=== PATIENT | female | born 1995 | race African-American/Black ===

== ENCOUNTER 2017-10-23 09:01 | Emergency (ER) | payer OTHER, MEDICAID ==
[~2017-10-23] VITALS: Ht 167.6 cm; Wt 79.4 kg
[~2017-10-23 09:01] MED LIST: FLAGYL500 MG PO; HYDROCODONE-AP1 EAC6 PO; IBUPROFEN 800800 M1 PO; KEFLEX500 MG PO; MACROBID 100 M100 M2 PO; ULTRAM 50MG TAB50 MG PO; VENTOLIN HFA INH8 GM; ZOFRAN ODT4 MG PO
[2017-10-23 09:10] VITALS: BP 138/76
[2017-10-23] MEDS ORDERED: ZPAK PO (09:17)
[2017-10-23] MEDS ORDERED: PREDNISONE 20 M20 M1 PO (09:17)
[2017-10-23] MEDS ORDERED: VENTOLIN HFA 1818 GM INH (09:17)
== END 2017-10-23 09:23 | disposition home or self-care (01) ==
LOC: M.ERS 09:01
DX: J40 Bronchitis, not specified as acute or chronic (principal)

== ENCOUNTER 2018-09-07 09:15 | Emergency (ER) | payer OTHER, MEDICAID ==
[~2018-09-07] VITALS: Ht 167.6 cm; Wt 93.7 kg
[~2018-09-07 09:15] MED LIST changes: +PREDNISONE 20 M20 M1 PO; +VENTOLIN HFA 1818 GM INH; +ZPAK PO
[2018-09-07 09:54] LABS: CALCIUM 8.7 mg/dL (8.5-10.1); CREATININE 0.8 mg/dL (0.6-1.3); POTASSIUM 3.4 mmol/L (3.5-5.1)
[2018-09-07 09:56] LABS: HEMOGLOBIN 9.6 gm/dL (12.0-15.0); WBC 6.1 thou/uL (4.0-11.0)
[2018-09-07 09:58] LABS: ALBUMIN 3.6 g/dL (3.4-5.0); HEMATOCRIT 32.6 % (37.0-47.0); MCHC 29.6 g/dL (28.0-37.0); MCV 64.4 fL (80.0-100.0); MPV 8.9 fl. (7.2-11.1); NUCLEATED RBCS 0 /100WBC; PLATELET COUNT* 394 thou/uL (150-400); RBC 5.06 mil/uL (4.20-5.00); RDW-CV 19.5 % (10.5-14.5); TOTAL BILIRUBIN 0.6 mg/dL (<0.1-1.0); TOTAL PROTEIN 7.3 g/dL (6.4-8.2)
[2018-09-07 10:12] LABS: URINE CLARITY CLOUDY; URINE COLOR YELLOW; URINE PROTEIN NEGATIVE (Negative); URINE SPECIFIC GRAVITY 1.025 (1.005-1.030)
[2018-09-07 10:13] LABS: URINE BILIRUBIN NEGATIVE (Negative); URINE BLOOD NEGATIVE (Negative); URINE GLUCOSE-RANDOM NEGATIVE (Negative); URINE KETONES NEGATIVE (Negative); URINE LEUKOCYTES-REFLEX 2+ (Negative); URINE NITRITE-REFLEX NEGATIVE (Negative); URINE UROBILINOGEN 0.2 E.U./dl (0.2-1.0)
[2018-09-07 10:14] LABS: SQUAMOUS >10 Many /LPF (0-3); URINE WBC-REFLEX >25 Many /HPF (0-5)
[2018-09-07 10:15] LABS: URINE RBC 3-10 Few /HPF (0-2)
[2018-09-07 10:16] LABS: BACTERIA-REFLEX >30 Many /HPF (None Seen); MUCUS >6 Heavy strn/LPF (None Seen)
[2018-09-07 10:17] LABS: CASTS None Seen /LPF (None Seen); CRYSTALS None Seen /LPF (None Seen)
[2018-09-07 10:45] LABS: ABSOLUTE BASOPHILS 0.1 thou/uL (0.0-0.2); ABSOLUTE EOSINOPHILS 0.1 thou/uL (0.0-0.7); ABSOLUTE MONOCYTES 0.7 thou/uL (0.0-1.2); ABSOLUTE NEUTROPHILS 3.3 thou/uL (1.6-8.1); ATYPICAL LYMPHS 4 %; PLATELET ESTIMATE ADEQUATE
[2018-09-07 10:46] LABS: HYPOCHROMASIA 2+; MICROCYTES 2+; TEARDROPS Occasional
[2018-09-07 10:47] LABS: ANISOCYTOSIS 1+
[2018-09-07 13:00] VITALS: BP 149/66
== END 2018-09-07 13:00 | disposition short-term general hospital (02) ==
LOC: M.ERS 09:15
PROVIDERS: Family Medicine
DX: N83.202 Unspecified ovarian cyst, left side (principal); R11.2 Nausea with vomiting, unspecified; J45.909 Unspecified asthma, uncomplicated

== ENCOUNTER 2020-07-04 07:25 | Emergency (ER) | payer OTHER ==
[~2020-07-04] VITALS: Ht 167.6 cm; Wt 93.0 kg
[2020-07-04] MEDS ORDERED: NUVARING VAGIN1 EACH VAG (07:38)
[2020-07-04 08:44] VITALS: BP 122/79
== END 2020-07-04 08:45 | disposition home or self-care (01) ==
LOC: M.ERS 07:25
DX: J06.9 Acute upper respiratory infection, unspecified (principal); J45.909 Unspecified asthma, uncomplicated; F17.210 Nicotine dependence, cigarettes, uncomplicated; Z20.828 Contact with and (suspected) exposure to other viral communicable diseases

== ENCOUNTER 2021-03-25 09:44 | Emergency (ER) | payer OTHER ==
[~2021-03-25] VITALS: Ht 167.6 cm; Wt 68.0 kg
[~2021-03-25 09:44] MED LIST changes: +NUVARING VAGIN1 EACH VAG
[2021-03-25 10:29] LABS: HEMOGLOBIN 8.1 gm/dL (12.0-15.0); MPV 8.3 fl. (7.2-11.1); NUCLEATED RBCS 0 /100WBC
[2021-03-25 10:31] LABS: CALCIUM 9.1 mg/dL (8.5-10.1); CREATININE 0.8 mg/dL (0.6-1.3); HEMATOCRIT 27.4 % (37.0-47.0); MCH 16.3 pg (26.0-34.0); MCHC 29.6 g/dL (28.0-37.0); MCV 55.3 fL (80.0-100.0); PLATELET COUNT* 424 thou/uL (150-400); POTASSIUM 3.7 mmol/L (3.5-5.1); RBC 4.97 mil/uL (4.20-5.00); RDW-CV 22.4 % (10.5-14.5); WBC 7.2 thou/uL (4.0-11.0)
[2021-03-25 10:35] LABS: ALBUMIN 3.9 g/dL (3.4-5.0); TOTAL BILIRUBIN 0.6 mg/dL (<0.1-1.0); TOTAL PROTEIN 8.1 g/dL (6.4-8.2)
[2021-03-25 11:24] LABS: ABSOLUTE LYMPHOCYTES 0.7 thou/uL (0.8-5.3); ABSOLUTE MONOCYTES 0.6 thou/uL (0.0-1.2); ABSOLUTE NEUTROPHILS 5.9 thou/uL (1.6-8.1); PLATELET ESTIMATE ADEQUATE
[2021-03-25 12:03] LABS: URINE BILIRUBIN NEGATIVE (Negative); URINE BLOOD 3+ (Negative); URINE CLARITY CLEAR; URINE COLOR YELLOW; URINE GLUCOSE-RANDOM NEGATIVE (Negative); URINE KETONES 1+ (Negative); URINE LEUKOCYTES-REFLEX TRACE (Negative); URINE NITRITE-REFLEX NEGATIVE (Negative); URINE PROTEIN NEGATIVE (Negative); URINE UROBILINOGEN 0.2 E.U./dl (0.2-1.0)
[2021-03-25 12:13] LABS: BACTERIA-REFLEX 1-9 Few /HPF (None Seen); CASTS None Seen /LPF (None Seen); CRYSTALS None Seen /LPF (None Seen); MUCUS None Seen strn/LPF (None Seen); SQUAMOUS 4-10 Moderate /LPF (0-3); URINE RBC >20 Many /HPF (0-2); URINE WBC-REFLEX 0-5 Rare /HPF (0-5)
[2021-03-25] MEDS ORDERED: PHENERGAN 25 MG25 M1 PO (14:48)
[2021-03-25] MEDS ORDERED: PROMS25 WY RECTAL (14:48)
[2021-03-25] MEDS ORDERED: BENTYL 10 MG CA10 M1 PO (14:48)
[2021-03-25 15:06] VITALS: BP 129/71
== END 2021-03-25 15:06 | disposition home or self-care (01) ==
LOC: M.ERS 09:44
PROVIDERS: Nurse Practitioner Family
DX: K52.9 Noninfective gastroenteritis and colitis, unspecified (principal); D64.9 Anemia, unspecified; D25.9 Leiomyoma of uterus, unspecified; R73.9 Hyperglycemia, unspecified; J45.909 Unspecified asthma, uncomplicated

== ENCOUNTER 2021-03-27 19:10 | Emergency (ER) | payer OTHER ==
[~2021-03-27] VITALS: Ht 167.6 cm; Wt 77.1 kg
[~2021-03-27 19:10] MED LIST changes: +BENTYL 10 MG CA10 M1 PO; +PHENERGAN 25 MG25 M1 PO; +PROMS25 WY RECTAL
[2021-03-27 19:44] LABS: HEMOGLOBIN 8.4 gm/dL (12.0-15.0); MCV 54.8 fL (80.0-100.0); NUCLEATED RBCS 0 /100WBC; PLATELET COUNT* 498 thou/uL (150-400); URINE BLOOD 3+ (Negative); URINE CLARITY CLOUDY; URINE COLOR RED; URINE GLUCOSE-RANDOM TRACE (Negative); URINE KETONES TRACE (Negative); URINE LEUKOCYTES-REFLEX TRACE (Negative); URINE NITRITE-REFLEX NEGATIVE (Negative); URINE PROTEIN 2+ (Negative)
[2021-03-27 19:46] LABS: HEMATOCRIT 28.7 % (37.0-47.0); MCH 16.1 pg (26.0-34.0); MCHC 29.4 g/dL (28.0-37.0); MPV 8.2 fl. (7.2-11.1); RBC 5.24 mil/uL (4.20-5.00); RDW-CV 22.1 % (10.5-14.5); WBC 6.2 thou/uL (4.0-11.0)
[2021-03-27 19:50] LABS: ICTOTEST (BILI CONFIRMATORY) Negative (Negative); URINE BILIRUBIN 1+ (Negative)
[2021-03-27 19:52] LABS: ALBUMIN 4.2 g/dL (3.4-5.0); CREATININE 0.9 mg/dL (0.6-1.3); POTASSIUM 2.9 mmol/L (3.5-5.1); TOTAL BILIRUBIN 1.3 mg/dL (<0.1-1.0); TOTAL PROTEIN 8.7 g/dL (6.4-8.2)
[2021-03-27 19:56] LABS: MUCUS 0-3 Light strn/LPF (None Seen); URINE RBC >20 Many /HPF (0-2)
[2021-03-27 19:57] LABS: SQUAMOUS 4-10 Moderate /LPF (0-3); URINE WBC-REFLEX 0-5 Rare /HPF (0-5)
[2021-03-27 19:58] LABS: BACTERIA-REFLEX None Seen /HPF (None Seen); CASTS None Seen /LPF (None Seen); CRYSTALS None Seen /LPF (None Seen)
[2021-03-27 20:16] LABS: ABSOLUTE BASOPHILS 0.1 thou/uL (0.0-0.2); ABSOLUTE EOSINOPHILS 0.1 thou/uL (0.0-0.7); ABSOLUTE LYMPHOCYTES 1.2 thou/uL (0.8-5.3); ABSOLUTE MONOCYTES 0.4 thou/uL (0.0-1.2); ABSOLUTE NEUTROPHILS 4.5 thou/uL (1.6-8.1); HYPOCHROMASIA 2+; MACROCYTES 1+; PLATELET ESTIMATE INCREASED
[2021-03-27 20:17] LABS: ANISOCYTOSIS 1+; LARGE PLATELETS FEW; MICROCYTES Occasional
[2021-03-27 20:18] LABS: POLYCHROMASIA Occasional
[2021-03-27 20:35] LABS: AMP/METHAMP Negative (Negative); BARBITURATES Negative (Negative); BENZODIAZEPINES Negative (Negative); COCAINE Negative (Negative); METHADONE Negative (Negative); OPIATES Negative (Negative); PCP Negative (Negative); THC POSITIVE (Negative)
[2021-03-27] MEDS ORDERED: PROMS25 WY RECTAL (21:22)
[2021-03-27] MEDS ORDERED: PHENERGAN 25 MG25 M1 PO (21:22)
[2021-03-27 22:15] VITALS: BP 141/93
--- NOTE | 2021-03-28 11:51 | EKG ---
[place] [address] ELECTROCARDIOGRAM REPORT Name: JERODJAIMIE Cristofer Room: [facility]#: [id number] Admission: 03/27/21 Attend Phys: Discharge: 03/27/21 Date of : 89 Date of Service: 03/27/211944 Report #: [id number] THIS REPORT FOR: //name// [facility] ED Test Date: 2021-03-27 Test Time: 19:45:02 Pat Name: JAIMIE NEWSOME Department: Room: Gender: [employer]: [place] : 1995 Requested By: Tati Maldonado Order Number: [id number] MD: Jeronimo Lim Measurements Intervals [place] Rate: 52 P: 10 [place]: 122 QRS: 18 QRSD: 87 T: 43 QT: 405 QTc: 377 Interpretive Statements Sinus rhythm No previous ECG available for comparison Electronically Signed On 03-28-2021 11:51:34 CDT by Jeronimo Lim [email or web address] <ELECTRONICALLY SIGNED> By: Jeronimo Lim MD, [facility] 03/28/21 1151 44 44 Jeronimo Lim MD, FACC /EPI
== END 2021-03-27 22:15 | disposition home or self-care (01) ==
LOC: M.ERS 19:10
PROVIDERS: Nurse Practitioner Family
DX: R11.15 Cyclical vomiting syndrome unrelated to migraine (principal); E87.6 Hypokalemia; J45.909 Unspecified asthma, uncomplicated; Z86.2 Personal history of diseases of the blood and blood-forming organs and certain disorders involving the immune mechanism; Z79.899 Other long term (current) drug therapy